=== PATIENT | female | born 1950 | race Asian ===

== ENCOUNTER 2016-09-22 20:12 | Inpatient (IN) | payer OTHER ==
[~2016-09-22] VITALS: Ht 152.4 cm; Wt 57.1 kg
[2016-09-22 20:21] VITALS: BP 176/87; PULSE 95; RESP 16; O2SAT 95
[2016-09-22] MEDS ORDERED: Ondansetron 2 mg/mL 2 mL Inj ONE ×2 (20:43→22:07)
[2016-09-22 20:57] LABS: BASOPHILS % (AUTO) 0.2 % (0-3); EOSINOPHILS % (AUTO) 0.8 % (0-5); MONOCYTES % (AUTO) 6.1 % (4-12); Mean Corpuscular Hemoglobin 29.1 pg (27.0-35.0); Mean Corpuscular Volume 82.8 fL (81-100); Platelet Count 215 bil/L (150-400)
[2016-09-22] MEDS ORDERED: 0.9% Sodium Chloride 1,000 ML IV ONE (21:05)
[2016-09-22 21:26] LABS: Magnesium 1.8 mg/dL (1.6-2.6)
--- NOTE | 2016-09-22 21:55 | ED.REPORT ---
HPI-NVD Date of Service Sep 22, 2016 ED Provider: Refugio Dupont MD This is a 66 year old female presenting to the emergency department due to nausea and vomiting that began 12 hours ago. Reports diarrhea, nausea and vomiting. Six episodes diarrhea today, seven episodes emesis. Denies fever, chills, dysuria, hematemesis, hematochezia. Also reports cough, headache, and rhinorrhea in the last week. She was evaluated by PCP in the last week due to cold symptoms. Nursing Notes Stated Complaint: NAUSEA, VOMITING Chief Complaint: FLU/Cold Symptoms Nursing Notes Reviewed: Yes Allergies: Coded Allergies: No Known Allergies (Unverified , 09/22/16) Scheduled Hydrochlorothiazide (Hydrochlorothiazide) 25 Mg Tablet 25 MG PO DAILY Lisinopril (Lisinopril) 10 Mg Tablet 10 MG PO DAILY General Time Seen by MD: 21:38 Chief Complaint Vomiting Hx Obtained From: Patient Arrived By: Walk-in Onset Occurred: 9 - 12 hours ago Symptom Duration: Since onset Severity: Current: No pain currently Pertinent Negative: Pt denies other symptoms Recent Healthcare: No recent hospitalization, Recent doctor visit Similar Sx Previous: No Past Medical History Past Medical History Denies Past Surgical History Denies Ambulatory Status Independent Review of Systems Constitutional: Reports: Malaise, Denies: Chills, Fever Ears / Nose / Throat: Denies: Sore throat GI: Reports: Nausea, Vomiting, Denies: Abdominal pain, Constipation, Diarrhea Skin: Denies Diaphoresis Neurologic: Reports: Headache Complete sys rev & neg: except as marked. Physical Exam Initial Vital Signs Vital Signs (First) Date Time Temp Pulse Resp B/P Pulse Ox O2 Delivery O2 Flow Rate FiO2 09/22/16 20:21 36.2 95 16 176/87 95 Room Air Initial VS: Reviewed, Vital signs abnormal Head / Eyes: Atraumatic, Normocephalic, PERRL Neck: Supple, Non-tender, Full range of motion Respiratory: Breath sounds normal, Clear to auscultation, No respiratory distress Cardiovascular: Regular rate & rhythm, Heart sounds normal, Intact distal pulses Extremities: Vascular intact, Neuro intact, No swelling, No tenderness Skin: Warm, Dry, No cyanosis Neurologic: Alert, Oriented, Nonfocal Psychiatric: Mood/affect normal, Behavior normal, Normal thought content General/Constitutional: Awake, Alert Abdomen: No guarding, No rebound ENT: Airway patent, Mucous membranes moist, Pharynx NL Interpretation & Diagnostics Lab Results Interpretation Result Diagram: 09/22/16203909/23/16 0553 Test 09/22/16 20:40 09/22/16 21:54 White Blood Count 5.1th/mm3 (3.8-10.1) Red Blood Count 4.47mil/mm3 (3.90-5.20) Hemoglobin 13.0g/dL (12.0-15.6) Hematocrit 37.0% (35.0-46.0) Mean Corpuscular Volume 82.8fL (81-100) Mean Corpuscular Hemoglobin 29.1pg (27.0-35.0) Mean Corpuscular Hemoglobin Concent 35.1% (32.0-37.0) Red Cell Distribution Width 11.2% (12.3-15.4) Platelet Count 215bil/L (150-400) Neutrophils (%) (Auto) 59.0% (40-74) Lymphocytes (%) (Auto) 33.7% (14-46) Monocytes (%) (Auto) 6.1% (4-12) Eosinophils (%) (Auto) 0.8% (0-5) Basophils (%) (Auto) 0.2% (0-3) Magnesium Level 1.8mg/dL (1.6-2.6) Total Bilirubin 0.6mg/dL (0.0-1.2) Aspartate Amino Transf (AST/SGOT) 28U/L (0-50) Alanine Aminotransferase (ALT/SGPT) 30U/L (0-32) Alkaline Phosphatase 78U/L (25-165) Total Protein 7.8g/dL (6.4-8.4) Albumin 4.8g/dL (3.4-5.0) Lipase 33U/L (13-60) Hold [place] Top Tube Received (Received) Urine Color Straw (YELLOW) Urine Appearance Clear (CLEAR,HAZY) Urine pH 7.0 (5.0-8.0) Urine Specific [place] 1.010 (1.003-1.035) Urine Protein Negativemg/dL (NEG,TRACE) Urine Glucose (UA) Negativemg/dL (NEGATIVE) Urine Ketones Negativemg/dL (NEGATIVE) Urine Occult Blood Trace (NEGATIVE) Urine Nitrite Negative (NEGATIVE) Urine Bilirubin Negative (NEGATIVE) Urine Urobilinogen Normalmg/dL (NORMAL) Urine Leukocyte Esterase Trace (NEGATIVE) Urine RBC 0-2/hpf (0-2) Urine WBC 0-5/hpf (0-5) Urine Epithelial Cells Occasional/hpf (NONE-MOD) Urine Crystals None seen (NONE SEEN) Urine Bacteria Few/hpf (NONE-FEW) Urine Hyaline Casts None/lpf (NONE) Urine Granular Casts None seen (NONE SEEN) Urine Waxy Casts None seen (NONE SEEN) Urine Red Blood Cell Casts None seen (NONE SEEN) Urine White Blood Cell Casts None seen (NONE SEEN) Urine Mucus None seen (None Seen) Urine Trichomonas None seen (NONE SEEN) Urine Yeast None (NONE SEEN) Urinalysis Comment None Urine Culture Reflexed Indicated Lab Results Interpretation: Severe hyponatremia, hypokalemia Re-Eval/Medical Decision Med Decision/Clinical Course Exceed 6-year-old female who has had nausea vomiting and diarrhea with resultant dehydration and hyponatremia. She was given 2 L of saline and 20 mEq of potassium with partial correction. She will be admitted to the hospital for further evaluation and treatment. Re-Evaluation/Progress : Time of Eval: 01:23 Re-Evaluation/Progress Note: Discussed plan for admission, pt understands and agrees with plan, all questions addressed. Consultation : Referral / Consult Name: Yoanna Bernstein DO Consulted With: Hospitalist Call Returned at: 01:21 Harness Preparer: Accepts admit Counseled Regarding: Diagnosis, Lab results, Need for follow-up, Need for admission Discharge & Departure Impression: Primary Impression: Nausea & vomiting Additional Impression: Hyponatremia Disposition: ADMITTED TO HOSPITAL Discharge Condition All VS Reviewed: Yes Condition: Stable Referrals: Kwadwo Molina MD (PCP) Scribe Attestation Portions of this note were transcribed by Eva Doyle. I, Dr. Dupont personally performed the history, physical exam and medical decision-making; I reviewed and confirmed the accuracy of the information in the transcribed note. Signed by: nancy Trinidad. 09/22/2016, 06:00. Refugio Dupont MD Sep 22, 2016 21:55 EVA DOYLE Sep 22, 2016 22:03 (3.5-5.2) Chloride Level 91mEq/L (97-108) Carbon Dioxide Level 23mmol/L (18-29) Blood Urea Nitrogen 9mg/dL (8-27) Creatinine 0.42mg/dL (0.57-1.00) Estimat Glomerular Filtration Rate 217mL/min (>59) Glucose Level 129mg/dL (60-99) Calcium Level 8.0mg/dL (8.5-10.1) Re-Eval/Medical Decision Re-Evaluation/Progress : Time of Eval: 01:23 Re-Evaluation/Progress Note: Discussed plan for admission, pt understands and agrees with plan, all questions addressed. Consultation : Referral / Consult Name: Yoanna Bernstein Consulted With: Hospitalist Call Returned at: 01:21 Harness Preparer: Accepts admit Counseled Regarding: Diagnosis, Lab results, Need for follow-up, Need for admission Discharge & Departure Impression: Primary Impression: Nausea & vomiting Additional Impression: Hyponatremia Disposition: ADMITTED TO HOSPITAL Discharge Condition All VS Reviewed: Yes Condition: Stable Referrals: Kwadwo Molina MD (PCP) Scribe Attestation Portions of this note were transcribed by Eva Doyle. I, Dr. Dupont personally performed the history, physical exam and medical decision-making; I reviewed and confirmed the accuracy of the information in the transcribed note. Signed by: nancy Trinidad. 09/22/2016, 06:00. Refugio Dupont MD Sep 22, 2016 21:55 EVA DOYLE Sep 22, 2016 22:03
[2016-09-22] MEDS ORDERED: Ondansetron 2 mg/mL 2 mL Inj IVPUSH PRN (22:05)
[2016-09-22] MEDS ORDERED: 0.9% NaCl + KCl 20 mEq/L 1,000 ML IV ONE (22:05)
[2016-09-22 22:09] LABS: APPEARANCE,URINE CLEAR (CLEAR,HAZY); COLOR,URINE STRAW (YELLOW); OCCULT BLOOD,URINE TRACE (NEGATIVE); UROBILINOGEN,URINE NORMAL (NORMAL)
[2016-09-22 22:34] VITALS: BP 157/85; PULSE 77; RESP 16; O2SAT 97
[2016-09-22 23:07] VITALS: BP 156/59; PULSE 90; RESP 16; O2SAT 97
[2016-09-22 23:45] VITALS: BP 147/65; PULSE 82; RESP 16; O2SAT 97
[2016-09-23] VITALS (10 sets, daily range): BP systolic 132–177; BP diastolic 62–93; PULSE 63–90; RESP 14–20; O2SAT 96–100
[2016-09-23] MEDS ORDERED: Alum-Mag Hydrox-Simeth 30 mL Suspension PO ONE (00:50)
[2016-09-23] MEDS ORDERED: Ondansetron 2 mg/mL 2 mL Inj IVPUSH PRN (01:25)
[2016-09-23] MEDS ORDERED: Polyethylene Glycol (PEG) 17 Gm Powder PO PRN (01:25)
[2016-09-23] MEDS ORDERED: Alum-Mag Hydrox-Simeth 30 mL Suspension PO PRN (01:25)
--- NOTE | 2016-09-23 03:20 | PCM.HPMED ---
Subjective Date of Service Sep 23, 2016 Primary Provider: Admitting Physician: Yoanna Bernstein DO Primary Care Physician: Kwadwo Molina MD Attending Physician: Yoanna Bernstein DO Admit Status: From the Emergency Department Chief Complaint: Vomiting and diarrhea History of Present Illness: 65-year-old female with hypertension and migraine presents to the emergency department with acute onset nausea, vomiting, and diarrhea. She has had one week of symptoms including runny nose, nasal congestion, headache, and a mild cough. Headache worsened yesterday patient took abortive migraine medication 3. Patient took blood pressure medicines this morning. She was able to eat lunch normally at noon. At 4 PM she had acute onset of vomiting and diarrhea with 7 episodes of diarrhea between 4 PM and 8 PM. She reports chills but no fever, discomfort in her throat and epigastric region associated with vomiting. No chest pain or shortness of breath. She reports no recent night sweats, no dysuria, no hematemesis, and no hematochezia. Sick contacts include her with runny nose and cough. No recent travel, no exposure to tuberculosis. In the emergency department: Patient is afebrile, pulse 89, respirations 20, blood pressure 146/62, O2 saturation 97% on room air. Laboratory evaluation reveals sodium of 119, potassium 3.0, chloride 80, glucose 147. Patient was given 1 L of normal saline, and 1 L of potassium chloride/sodium chloride. Patient given 3 doses of 4 mg Zofran, 975 mg acetaminophen, and Maalox plus. Labs were rechecked after intervention sodium increased to 125, potassium to 3.7 , chloride to 91. Review of Systems: A comprehensive review of systems was conducted with the patient and found to be negative except as above in the History of Present Illness. Allergies Coded Allergies: No Known Allergies (Unverified , 09/25/16) Home Medications Hydrochlorothiazide 25 mg daily Lisinopril 10 mg daily Abortive migraine medication possibly sumatriptan, patient rarely takes. Patient recently started on Zyrtec and Mucinex acutely for her cold symptoms. PMH 1. Hypertension 2. Severe migraine Surgical History 1. Appendectomy Family History Sister with history of CVA Father with heart failure at age 89 Social History Occupation: Study Manager at [employer] Hx Alcohol Use: Yes Alcoholic Drinks Per Day: 1 duong per month Hx Substance Use: No Hx Tobacco Use: No Smoking Status: Never Smoker Living Arrangement: with Family Exam Vital Signs Vital Sign - Last Date Time Temp Pulse Resp B/P Pulse Ox O2 Delivery O2 Flow Rate FiO2 09/23/16 00:26 89 20 146/62 97 Room Air 09/22/16 22:34 36.7 Intake and Output 09/22/16 09/22/16 09/23/16 Cumulative From/Thru 15:00 23:00 07:00 09/22/16 20:21 - 09/22/16 20:49 Intake Total 1990 ml 1990 ml Balance 1990 ml 1990 ml Intake IV Total 1990 ml 1990 ml Exam General: No acute distress, well-developed, well-nourished, appropriately interactive, speaks little Lebanese HEENT: Normocephalic, atraumatic. External ears without defect. Anicteric sclerae, moist conjunctivae, and no lid lag. Oropharynx free of erythema with moist mucosa. Neck: Supple. No jugular venous distension. Cardiovascular: Regular rate and rhythm with no murmurs, rubs, or gallops appreciated Pulmonary: Clear to auscultation bilaterally with no crackles, wheezes, or rhonchi. Normal respiratory effort with no use of accessory muscles. Abdomen: Bowel tones present. Soft, nontender, nondistended. No hepatosplenomegaly or masses appreciated. Extremities: No clubbing, cyanosis, edema, or lymphadenopathy appreciated. Skin: Normal temperature, turgor, and texture; no rash, ulcers, or subcutaneous nodules appreciated. Neurological: Cranial nerves grossly intact. No known gait impairment. Psychiatric: Normal mood and affect. Alert and oriented to person, place, and time. Lab and Diagnostics Result Diagram: 09/22/16203909/23/16 0030 Assessment & Plan 65-year-old female with hypertension and migraine presents to the emergency department with acute onset nausea, vomiting, and diarrhea. Found to have hyponatremia and hypokalemia. 1. Probable gastroenteritis, acute, present on admission, improving Clear liquid diet progress as tolerated, bland foods such as applesauce or saltine crackers okay. Banana, rice, applesauce, toast diet preferred, advance slowly as tolerated. IV Zofran when necessary Maalox plus for epigastric discomfort Stool PCR Maintenance fluids pending AM labs 2. Hypovolemic hyponatremia, likely acute, present on admission, improving Patient corrected sodium by 6 meq with 2 L NS. hold HCTZ for now as this could be a contributor to hyponatremia. Recheck chem panel with AM labs 3. Hypokalemia, likely acute, resolved in ED Potassium chloride given Recheck chem panel with AM labs 4. Hypertension, chronic Continue lisinopril PRN labetalol for SBP sustained >160 Continue to monitor PRN pain: Tylenol PRN Bowel: Senna, MiraLAX Patient is admitted under observation status with expected length of stay less than 2 midnights due to severity of presenting symptoms, and complexity of treatment plan. Pain Evaluation: Adequate Pain Control GI Prophylaxis: Not indicated VTE Prophylaxis: Sub-Q Heparin (Unfractionated), SCDs Resuscitation Status: CPR: Attempt Resuscitation Attending Statement The patient was seen and examined together with house staff on 09/23/2016 and I agree with the history, exam and plan as outlined in the note above. Hui Goldberg DO Sep 23, 2016 03:19 Yoanna Bernstein DO Oct 01, 2016 16:23
[2016-09-23] MEDS ORDERED: hydrALAZINE 20 mg/mL Inj IV PRN (04:20)
[2016-09-23] MEDS ORDERED: LISI10TA PO (06:13)
[2016-09-23] MEDS ORDERED: HYDR25TA4 PO (06:17)
--- NOTE | 2016-09-23 07:51 | NUR ---
admit to floor 0200 Abdominal pain rated 4. C/O nausea. IV Zofran given and effective - no emesis. Daughter at bedside to interpret, patient speaks limited Thai. Tele applied; sinus 70's VSS. Admit complete.
[2016-09-23] MEDS: 0.9% Sodium Chloride 1,000 ML IV SCH ×2 (08:41→18:11)
--- NOTE | 2016-09-23 18:34 | NUR ---
GI pt feeling much better, tolerating bland diet well, no N/V/D, only complaint is H/A, relieved by Tylenol
[2016-09-24] MEDS: 0.9% Sodium Chloride 1,000 ML IV SCH (04:15)
[2016-09-24 05:14] VITALS: BP 164/90; PULSE 60; RESP 16; O2SAT 100
--- NOTE | 2016-09-24 05:56 | NUR ---
ACTIVITY Pt has had no complaints of N/V or abdominal pain. tolerating diet well. she is no longer complaining of a headache either. she has gotten up to the bathroom independently all night. care continues
[2016-09-24 07:12] LABS: BASOPHILS % (AUTO) 0.5 % (0-3); EOSINOPHILS % (AUTO) 3.7 % (0-5); MONOCYTES % (AUTO) 7.4 % (4-12); Mean Corpuscular Hemoglobin 28.7 pg (27.0-35.0); Mean Corpuscular Volume 86.5 fL (81-100); NEUTROPHILS % (AUTO) 39.5 % (40-74); Platelet Count 232 bil/L (150-400)
[2016-09-24 07:55] LABS: Magnesium 2.3 mg/dL (1.6-2.6); Phosphorus 2.3 mg/dL (2.5-4.9)
[2016-09-24 10:12] VITALS: BP 147/73; PULSE 69; RESP 18; O2SAT 99
[2016-09-24] MEDS ORDERED: ALBU8.5H2 INHALATION (10:12)
[2016-09-24] MEDS ORDERED: SUMA100T2 PO (10:18)
[2016-09-24] MEDS ORDERED: AMLO5TAB2 PO (10:25)
--- NOTE | 2016-09-24 10:28 | PCM.DIMED ---
Discharge Instructions Date of Service Sep 24, 2016 Dates of Hospitalization Sep 23, 2016 at 02:10 Discharge Diagnosis Discharge Diagnosis Acute viral gastroenteritis severe hyponatremia likely from GI fluid loss, diuretics. Medication Instructions your blood pressure medicine were changed. Stop taking lisinopril and hydrochlorthiazide taking amlodipine 5mg daily, check your blood pressure at home, and bring it to your doctor so that it can be adjusted. Diet No restrictions Activity No restrictions Call your provider Vomitting, Excessive diarrhea Patient Instructions You were hospitalized with multiple symptoms suggestive of viral infection in your digestive system and also with low sodium level Follow-up plan Please follow up with your doctor in 2weeks Follow-up Provider: Kwadwo Molina MD Follow-up with PCP in: 2 weeks Lacie De Paz MD Sep 24, 2016 10:28
[2016-09-24 10:32] VITALS: PULSE 67
--- NOTE | 2016-09-24 11:21 | NUR ---
Social Work- Initial Assessment Data: Pt is a 66 year old female admitted 09/23/06 for vomiting and diarrhea per H&P. Pt's insurance is [employer]. Pt's PCP is Kwadwo Molina MD. SW met with pt and pt's niece at bedside regarding discharge plan, SW role explained. Pt is alert and oriented x3. Pt resides in a home in [place] with 3 coworkers where she remains independent with her ADLs. Pt uses no DME and drives. Pt has no HH history or SNF history. Pt has no LTC insurance or VA benefits. SW spoke with pt regarding DPOA, encouraged pt to complete paperwork. Pt to discharge home with niece to transport via POV. No anticipated discharge needs. SW wrote phone number on board in room. SW will continue to follow. Assessment: Pt who is independent at base. Plan: Pt to discharge home with niece to transport via POV. No anticipated discharge needs, SW will continue to follow. ELVA Hensley
--- NOTE | 2016-09-24 11:26 | NUR ---
Social Work- Discharge Data: EMR reviewed. Pt is on day 1 of hospitalization for vomiting per H&P. Per RN notes, pt is independent in room. Pt to discharge today. Pt to discharge home with niece to transport via POV. No discharge needs. Assessment: Pt who is independent at base. Plan: Pt to discharge today. Pt to discharge home with niece to transport via POV. No discharge needs. ELVA Hensley
--- NOTE | 2016-09-24 14:24 | NUR ---
Discharge Pt left with family in stable condition with all belongings at 1130, IV d/c'd, prescription given, prescription faxed to pharmacy. Discharge information interpreted by daughter after pt and family refused supervisor operations on a stick. Instructions for follow up given.
--- NOTE | 2016-09-25 16:41 | PCM.DC.MED ---
Discharge Summary Date of Service Sep 24, 2016 Dates of Hospitalization Date of Hospital Admission Sep 23, 2016 at 02:10 Date of Discharge: Sep 24, 2016 Providers: Admitting Physician: Yoanna Bernstein DO Primary Care Physician: Kwadwo Molina MD Attending Physician: Yoanna Bernstein DO Diagnosis at Time of Discharge Diagnosis at Time of Discharge acute problem probable acute viral gastroenteritis severe hyponatremia likely from GI fluid loss, diuretics. Hypokalemia due to GI fluid loss chronic problem Hypertension Brief History HPI obtained by on 09/23 65-year-old female with hypertension and migraine presents to the emergency department with acute onset nausea, vomiting, and diarrhea. She has had one week of symptoms including runny nose, nasal congestion, headache, and a mild cough. Headache worsened yesterday patient took abortive migraine medication 3. Patient took blood pressure medicines this morning. She was able to eat lunch normally at noon. At 4 PM she had acute onset of vomiting and diarrhea with 7 episodes of diarrhea between 4 PM and 8 PM. She reports chills but no fever, discomfort in her throat and epigastric region associated with vomiting. No chest pain or shortness of breath. She reports no recent night sweats, no dysuria, no hematemesis, and no hematochezia. Sick contacts include her with runny nose and cough. No recent travel, no exposure to tuberculosis. In the emergency department: Patient is afebrile, pulse 89, respirations 20, blood pressure 146/62, O2 saturation 97% on room air. Laboratory evaluation reveals sodium of 119, potassium 3.0, chloride 80, glucose 147. Patient was given 1 L of normal saline, and 1 L of potassium chloride/sodium chloride. Patient given 3 doses of 4 mg Zofran, 975 mg acetaminophen, and Maalox plus. Labs were rechecked after intervention sodium increased to 125, potassium to 3.7 , chloride to 91. Hospital Course 65-year-old female with hypertension and migraine presents to the emergency department with acute onset nausea, vomiting, and diarrhea. Found to have hyponatremia and hypokalemia. acute problems. 1.Acute nausea vomiting diarrhea, abdominal pain secondary to probable viral gastroenteritis, labs were unremarkable as no wbc. pt was afebrile, no abx was given. pt was symptomatically managed with zofran, maalox, tylenol, IVF. Symptoms were greatly improved on the following day. No active diarrhea. tolerated diet well w/o abdominal pain, deemed safe for d/c to home. 2. Hypovolemic hyponatremia, likely acute from GI fluid loss and diuretics. initial sodium level was 119 with mild headache without other signs of neurologic complications. Patient received NS bolus 2liters and continued on NS 100cc/hr, HCTZ/lisinopril were held. Na level normalized at appropriate rate, 137 on discharge. OLIVER also resolved. patient was recommended to discontinue these two home bp meds as being also contributing to hyponatremia. 3 Hypokalemia due to GI fluid loss, resolved with IVF, diet. 4.Hypertension, BP remained 140-160s with holding home meds, newly started amlodipine 5mg upon d/c Exam Vital Signs (Last) Date Time Temp Pulse Resp B/P Pulse Ox O2 Delivery O2 Flow Rate FiO2 09/24/16 10:32 67 09/24/16 10:12 36.7 18 147/73 99 Room Air Exam NAD, comfortably laying down on the bed no JVD, MMM, no LAD RRR, nl s1, s2 no mrg CTAB, no w,c S,ND,NT,normoactive BS+ warm, no edema, pulses 2/2 Test 09/22/16 20:40 09/22/16 21:54 09/24/16 06:41 Lipase 33U/L (13-60) Hold [place] Top Tube Received (Received) Urine Color Straw (YELLOW) Urine Appearance Clear (CLEAR,HAZY) Urine pH 7.0 (5.0-8.0) Urine Specific [place] 1.010 (1.003-1.035) Urine Protein Negativemg/dL (NEG,TRACE) Urine Glucose (UA) Negativemg/dL (NEGATIVE) Urine Ketones Negativemg/dL (NEGATIVE) Urine Occult Blood Trace (NEGATIVE) Urine Nitrite Negative (NEGATIVE) Urine Bilirubin Negative (NEGATIVE) Urine Urobilinogen Normalmg/dL (NORMAL) Urine Leukocyte Esterase Trace (NEGATIVE) Urine RBC 0-2/hpf (0-2) Urine WBC 0-5/hpf (0-5) Urine Epithelial Cells Occasional/hpf (NONE-MOD) Urine Crystals None seen (NONE SEEN) Urine Bacteria Few/hpf (NONE-FEW) Urine Hyaline Casts None/lpf (NONE) Urine Granular Casts None seen (NONE SEEN) Urine Waxy Casts None seen (NONE SEEN) Urine Red Blood Cell Casts None seen (NONE SEEN) Urine White Blood Cell Casts None seen (NONE SEEN) Urine Mucus None seen (None Seen) Urine Trichomonas None seen (NONE SEEN) Urine Yeast None (NONE SEEN) Urinalysis Comment None Urine Culture Reflexed Indicated White Blood Count 4.3th/mm3 (3.8-10.1) Red Blood Count 4.21mil/mm3 (3.90-5.20) Hemoglobin 12.1g/dL (12.0-15.6) Hematocrit 36.4% (35.0-46.0) Mean Corpuscular Volume 86.5fL (81-100) Mean Corpuscular Hemoglobin 28.7pg (27.0-35.0) Mean Corpuscular Hemoglobin Concent 33.2% (32.0-37.0) Red Cell Distribution Width 11.6% (12.3-15.4) Platelet Count 232bil/L (150-400) Neutrophils (%) (Auto) 39.5% (40-74) Lymphocytes (%) (Auto) 48.7% (14-46) Monocytes (%) (Auto) 7.4% (4-12) Eosinophils (%) (Auto) 3.7% (0-5) Basophils (%) (Auto) 0.5% (0-3) Sodium Level 137mEq/L (134-144) Potassium Level 3.8mEq/L (3.5-5.2) Chloride Level 105mEq/L (97-108) Carbon Dioxide Level 21mmol/L (18-29) Blood Urea Nitrogen 6mg/dL (8-27) Creatinine 0.41mg/dL (0.57-1.00) Estimat Glomerular Filtration Rate 223mL/min (>59) Glucose Level 94mg/dL (60-99) Calcium Level 8.3mg/dL (8.5-10.1) Phosphorus Level 2.3mg/dL (2.5-4.9) Magnesium Level 2.3mg/dL (1.6-2.6) Total Bilirubin 0.7mg/dL (0.0-1.2) Aspartate Amino Transf (AST/SGOT) 18U/L (0-50) Alanine Aminotransferase (ALT/SGPT) 19U/L (0-32) Alkaline Phosphatase 59U/L (25-165) Total Protein 6.1g/dL (6.4-8.4) Albumin 3.9g/dL (3.4-5.0) Discharge Medications Discharge Medications Amlodipine (Amlodipine) 5 Mg Tablet 5 MG PO DAILY Prescribed by: LATOYA BONDS MD Sumatriptan Succinate (Sumatriptan Succinate) 100 Mg Tablet 100 MG PO A ( Reported) Miscellaneous Medications Albuterol HFA (Proair HFA) 8.5 Gm Hfa.aer.ad 1 INHALATION (Reported) Additional med instructions your blood pressure medicine were changed. Stop taking lisinopril and hydrochlorthiazide taking amlodipine 5mg daily, check your blood pressure at home, and bring it to your doctor so that it can be adjusted. Followup Plan Disposition: home Follow-up plan Please follow up with your doctor in 2weeks Discharge Diet: No restrictions Discharge Activity: No restrictions Patient Instructions You were hospitalized with multiple symptoms suggestive of viral infection in your digestive system and also with low sodium level Follow-up Provider: Kwadwo Molina MD Follow-up with PCP in: 2 weeks Time spent 65min Latoya Bonds MD Sep 24, 2016 22:48
== END 2016-09-24 11:40 | disposition home or self-care (01) | DRG 392 ==
LOC: SED 20:12 → OSC 09-23 02:10 → OBSVTOIN 09-23 02:10
PROVIDERS: ADMIT Internal Medicine; ATTEND Internal Medicine
DX: A08.4 Viral intestinal infection, unspecified (principal); E87.1 Hypo-osmolality and hyponatremia; E87.6 Hypokalemia; I10 Essential (primary) hypertension

== ENCOUNTER 2016-09-25 19:06 | Emergency (ER) | payer OTHER ==
[~2016-09-25] VITALS: Ht 152.4 cm; Wt 53.0 kg
[~2016-09-25 19:06] MED LIST: ALBU8.5H2 INHALATION; AMLO5TAB2 PO; SUMA100T2 PO
[2016-09-25 19:08] VITALS: BP 188/90; PULSE 96; RESP 15; O2SAT 100
--- NOTE | 2016-09-25 19:51 | ED.REPORT ---
HPI-Headache Date of Service Sep 25, 2016 ED Provider: Jose Carnes MD Pt is a 66 y/o female w/ a hx of HTN, migraines, presenting to the ED with her daughter c/o gradual onset worsening diffuse, dull, headache onset today at 13: 00. She c/o associated dizziness, nausea, bilateral transient blurred vision/ light sensitivity. No neck stiffness. Pt denies vomiting, problem walking, focal numbness or weakness. Her headache today is similar to previous migraines. The patient was admitted to this hospital from September 24-September 25 of this year (yesterday) for N/V/D which was thought to be related to viral gastroenteritis, also diagnosed with hyponatremia (119) which was thought to be related to fluid loss. She received 2L of IV fluids at a 100 mL/hour rate and her sodium normalized to 137, her headache was resolved, and she was discharged. She was started on Amlodipine 5 mg. She took her regularly scheduled medications today. Nursing Notes Stated Complaint: HEADACHE Chief Complaint: Headache Nursing Notes Reviewed: Yes Allergies: Coded Allergies: No Known Allergies (Unverified , 09/25/16) Scheduled Amlodipine (Amlodipine) 5 Mg Tablet 5 MG PO DAILY Scheduled PRN Albuterol HFA (Proair HFA) 8.5 Gm Hfa.aer.ad 2 INHALATION Q4H PRN PRN For Shortness of Breath Sumatriptan Succinate (Sumatriptan Succinate) 100 Mg Tablet 100 MG PO DAILY PRN PRN migraine General Time Seen by MD: 19:43 Chief Complaint Headache Hx Obtained From: Patient Arrived By: Walk-in Sudden in Onset?: No Onset Occurred: 1 - 4 hours ago Symptom Duration: Since onset Location: : Generalized Quality: Dull Severity: Current: Moderate Severity: Maximum: Moderate Recent Healthcare: Recent doctor visit, Recent hospitalization, Previous diagnosis Similar Sx Previous: Yes Past Medical History Past Medical History Hypertension Past Surgical History Denies Smoking History Never Smoker Ambulatory Status Independent Review of Systems Constitutional: Denies: Chills, Fever Eyes: Reports: Blurred bilateral, Denies: Visual loss bilateral GI: Reports: Nausea, Denies: Abdominal pain, Vomiting Neurologic: Reports: Headache, Denies: Change LOC, Focal weakness, Numbness Complete sys rev & neg: except as marked. Physical Exam Initial Vital Signs Vital Signs (First) Date Time Temp Pulse Resp B/P Pulse Ox O2 Delivery O2 Flow Rate FiO2 09/25/16 19:08 36.7 96 15 188/90 100 Room Air Initial VS: Reviewed, Vital signs abnormal ENT: Mucous membranes moist, Conjunctiva normal, No scleral icterus Respiratory: Breath sounds normal, Clear to auscultation, No respiratory distress Cardiovascular: Regular rate & rhythm, Heart sounds normal, Intact distal pulses Abdomen / GI: Soft, Non-tender, No distention Extremities: Vascular intact, Neuro intact, No swelling, No tenderness Skin: Warm, Dry, No cyanosis Psychiatric: Mood/affect normal, Behavior normal, Normal thought content General/Constitutional: Awake, Alert, No acute distress, Cooperative, Not toxic appearing Head / Eyes: Atraumatic, Normocephalic, PERRL, EOMI Reports blurry vision Neck: Atraumatic, Supple, No meningismus, Full range of motion Neurologic: Oriented X3, Speech NL, No motor deficits, No sensory deficits, CN II - XII intact, Cerebellar NL, Memory NL Interpretation & Diagnostics Lab Results Interpretation Result Diagram: 09/25/16203909/25/162039 Test 09/25/16 20:40 White Blood Count 6.1th/mm3 (3.8-10.1) Red Blood Count 4.69mil/mm3 (3.90-5.20) Hemoglobin 13.6g/dL (12.0-15.6) Hematocrit 40.1% (35.0-46.0) Mean Corpuscular Volume 85.5fL (81-100) Mean Corpuscular Hemoglobin 29.0pg (27.0-35.0) Mean Corpuscular Hemoglobin Concent 33.9% (32.0-37.0) Red Cell Distribution Width 11.8% (12.3-15.4) Platelet Count 267bil/L (150-400) Neutrophils (%) (Auto) 55.9% (40-74) Lymphocytes (%) (Auto) 36.3% (14-46) Monocytes (%) (Auto) 5.9% (4-12) Eosinophils (%) (Auto) 1.6% (0-5) Basophils (%) (Auto) 0.3% (0-3) Sodium Level 136mEq/L (134-144) Potassium Level 3.7mEq/L (3.5-5.2) Chloride Level 98mEq/L (97-108) Carbon Dioxide Level 22mmol/L (18-29) Blood Urea Nitrogen 11mg/dL (8-27) Creatinine 0.48mg/dL (0.57-1.00) Estimat Glomerular Filtration Rate 186mL/min (>59) Glucose Level 119mg/dL (60-99) Calcium Level 9.5mg/dL (8.5-10.1) Total Bilirubin 0.5mg/dL (0.0-1.2) Aspartate Amino Transf (AST/SGOT) 30U/L (0-50) Alanine Aminotransferase (ALT/SGPT) 33U/L (0-32) Alkaline Phosphatase 76U/L (25-165) Total Protein 8.1g/dL (6.4-8.4) Albumin 5.0g/dL (3.4-5.0) Hold Milton Top Tube Received (Received) ECG Interpretation Time: 20:36 Interpreted by: ED physician Normal ECG Interpretation: Normal ECG w/ rate of... (92), Normal rate, Normal sinus rhythm, No acute ischemic changes, Normal QRS, Normal axis, Normal intervals, Adequate tracing CT Head Interpretation IMPRESSION: No acute intracranial abnormality. Dictated by: Ceci Nelson M.D. on 09/25/2016 at 21:11 Approved by: Ceci Nelson M.D. on 09/25/2016 at 21:12 Study: Head CT no contrast Interpretation / Wet Read by: Interpret - Radiologist Re-Eval/Medical Decision Med Decision/Clinical Course Pt is a 66 y/o female w/ a hx of HTN, migraines, presenting to the ED with her daughter c/o gradual onset worsening diffuse, dull, headache onset today at 13: 00. She c/o associated dizziness, nausea, bilateral transient blurred vision/ light sensitivity. No neck stiffness. Pt denies vomiting, problem walking, focal numbness or weakness. Her headache today is similar to previous migraines. The patient was admitted to this hospital from September 24-September 25 of this year (yesterday) for N/V/D which was thought to be related to viral gastroenteritis, also diagnosed with hyponatremia (119) which was thought to be related to fluid loss. She received 2L of IV fluids at a 100 mL/hour rate and her sodium normalized to 137, her headache was resolved, and she was discharged. She was started on Amlodipine 5 mg. She took her regularly scheduled medications today. Upon arrival the patient is quite hypertensive with a systolic blood pressure in the 180s and reports that she has taken her amlodipine already. Given her ongoing headache I initially considered hypertensive emergency. I had ordered a nicardipine drip however on repeat measurement her blood pressure had spontaneously decreased to 150 systolic and remained low. She reported resolution of her headache and no neurologic symptoms. Given her recent hyponatremia in the setting of headache I also considered central pontine while in the lysis given that she was corrected over a relatively short period of time. That being said she was not profoundly hyponatremic and I would be quite surprised if she were to develop central pontine myelinolysis by receiving 0.9% saline and alone. CT scan of the brain was unrevealing. Labs notable as below: CBC: Unremarkable CMP: Unremarkable, sodium of 136, good kidney function The patient had no physical exam findings suggestive of meningitis and the nature of her headache was not suggestive of subarachnoid hemorrhage or intracranial hemorrhage. CT scan demonstrated no evidence of bleeding or mass lesion. She remained with normal serial neurologic assessments here in the emergency department. Her pain was treated with Tylenol. Blood pressure remained elevated though in the 150s. At this time my concern for hypertensive emergency is much lower and given her normal neurologic assessments by concern for other immediately concerning processes is much lessened. I feel that the patient is appropriate for discharge home and she wishes to return. Follow-up and return precautions were reviewed in detail she was discharged in good condition. In regards to her blood pressure she will keep a blood pressure log , continues to amlodipine call her primary care physician tomorrow to arrange for follow-up appointment and consideration to further adjust her antihypertensives. Re-Evaluation/Progress : Time of Eval: 21:42 )( Patient Status: Condition improved, Moderate relief Re-Evaluation/Progress Note: Pt rechecked. OLIVER improved. Informed pt of plan for treatment. Pt understands and agrees with plan for treatment. F/U instructions and RTER warnings given. All questions addressed. Counseled Regarding: Diagnosis, Lab results, Need for follow-up, When/why to return to ED Discharge & Departure Impression: Primary Impression: Headache Headache type: unspecified Headache chronicity pattern: acute headache Intractability: not intractable Qualified Code: R51 - Headache Additional Impressions: Severe hypertension Hyponatremia Hypertensive urgency Disposition: Home Discharge Condition All VS Reviewed: Yes Condition: Stable Patient Instructions: Acute Headache (ED), Chronic Hypertension (ED) Additional Instructions: Thank you for seeking care at the emergency room. It is difficult for us to make definitive diagnoses in the ED but we believe that you are experiencing a headache which may be caused by your very high blood pressure. Our primary goal today in the ED was to evaluate you for any life-threatening conditions. Your evaluation was reassuring. The CT scan was normal. You should follow-up with your primary doctor tomorrow. Call tomorrow morning to set up an appointment. An increase in blood pressure medication may be considered. Continue taking the Amlodipine. Take your blood pressure 3 times a day and record this until you see Dr. Molina. If her blood pressure is above 180 and she is experiencing symptoms, she should return to the emergency department. You should return to the ED immediately if you develop a severe headache, neck stiffness, one-sided numbness or weakness of your arms or legs, fevers, vomiting , cough, shortness of breath, chest pain, lightheadedness, weakness or any other concerning signs or symptoms. Thank you for letting us partake in your care today. Referrals: Kwadwo Molina MD (PCP) Scribe Attestation Portions of this note were transcribed by Shai Jara. I, Dr. Carnes personally performed the history, physical exam and medical decision-making; I reviewed and confirmed the accuracy of the information in the transcribed note. Signed by Nory Stout, 09/25/161999 copies to: Kwadwo Molina MD, Beck O MD Sep 25, 2016 19:51 SHAI JARA Sep 25, 2016 19:57
[2016-09-25] MEDS ORDERED: NiCARdipine Inj 25 MG in Dextrose 5% 240 ML IV SCH (20:15)
[2016-09-25 20:37] VITALS: BP 176/77; PULSE 96; RESP 18; O2SAT 98
[2016-09-25 20:47] LABS: BASOPHILS % (AUTO) 0.3 % (0-3); EOSINOPHILS % (AUTO) 1.6 % (0-5); MONOCYTES % (AUTO) 5.9 % (4-12); Mean Corpuscular Volume 85.5 fL (81-100); NEUTROPHILS % (AUTO) 55.9 % (40-74); Platelet Count 267 bil/L (150-400)
--- NOTE | 2016-09-25 21:13 | DRSVH ---
PROCEDURE: CT BRAIN WITHOUT CONTRAST ([id number]) INDICATIONS: headache, recently corrected for hyponatremia TECHNIQUE: Noncontrast 4.5 mm thick angled axial sections acquired from the foramen magnum to the vertex, with c oronal reformats. COMPARISON: None. FINDINGS: Image quality: Excellent. CSF spaces: Basal cisterns are patent. No extra-axial fluid collections. The ventricles are symmet constanza in size and shape. Brain: No intracranial bleeds or masses. There is cerebral volume loss for age, with resultant vent ricular and sulcal prominence. There are periventricular and deep white matter chronic small vessel ischemic changes. There is intracranial internal carotid artery atherosclerosis. Skull and face: Calvarium and visualized facial bones appear intact, without suspicious lesions. Sinuses: Visualized sinuses and mastoids are clear. IMPRESSION: No acute intracranial abnormality. Dictated by: Ceci Nelson M.D. on 09/25/2016 at 21:11 Approved by: Ceci Nelson M.D. on 09/25/2016 at 21:12
[2016-09-25 21:18] VITALS: BP 153/64; PULSE 91; RESP 17; O2SAT 97
[2016-09-25 22:06] VITALS: BP 158/38; PULSE 90; RESP 16; O2SAT 97
== END 2016-09-25 22:07 | disposition home or self-care (01) ==
LOC: SED 19:06
DX: R51 Headache (principal); I10 Essential (primary) hypertension; I16.0 Hypertensive urgency; E87.1 Hypo-osmolality and hyponatremia